=== PATIENT | male | born 1945 | race African-American/Black ===

== ENCOUNTER 2017-08-10 14:13 | Inpatient (IN) ==
[2017-08-10] MEDS ORDERED: ACETAMINOPHEN 325 MG/10.15 ML UDCUP PO STA (15:21)
[2017-08-10] MEDS ORDERED: VANCOMYCIN INJ 1,000 MG in SODIUM CHLORIDE 0.9% 250 ML IV STA (15:21)
[2017-08-10] MEDS ORDERED: PIPERACILLIN/TAZOBACTAM 2,250 MG in SODIUM CHLORIDE 0.9% 100 ML IV STA (15:21)
[2017-08-10 15:30] LABS: Basophils % 0.2 % (0.0-0.8); Eosinophils % 0.2 % (0.00-10.9); Hematocrit 26.9 VOL% (42.0-52.0); Hemoglobin 7.7 GM/DL (14.0-18.0); Immature Granulocytes % 0.7 %; Immature Granulocytes Absolute 0.12 #; Lymphocytes # 1.6 10*3/uL (1.4-4.0); Lymphocytes % 9.5 % (21.2-54.2); Mean Corpuscular HGB Conc 28.6 GM/DL (32-36); Mean Corpuscular Hemoglobin 25 PG (27-34); Mean Corpuscular Volume 87.6 FL (87-102); Mean Platelet Volume 11.7 FL (9.6-12.0); Monocytes # 1.1 10*3/uL (0.11-0.8); Monocytes % 6.3 % (1.7-12.7); Neutrophils # 14.4 10*3/uL (1.4-7.4); Neutrophils % 83.1 % (38.7-73.9); Platelet Count 379 T/CUMM (130-400); Red Blood Count 3.07 MC/CUMM (3.8-5.5); Red Cell Distribution Width 17.1 % (9.3-17.3); White Blood Count 17.3 T/CUMM (4-12)
[2017-08-10] MEDS ORDERED: PIPERACILLIN/TAZOBACTAM 3,375 MG in SODIUM CHLORIDE 0.9% 100 ML IV STA (15:41)
[2017-08-10 15:42] LABS: PT Patient Result 20.6 SECS
[2017-08-10 15:49] LABS: Lactic Acid 3.4 MMOL/L (0.4-2.0)
[2017-08-10] MEDS ORDERED: ONDANSETRON 4 MG/2 ML VIAL IV PRN (15:52)
[2017-08-10] MEDS ORDERED: LACTULOSE 20 GM/30 ML UDCUP PO PRN (15:52)
[2017-08-10] MEDS ORDERED: SODIUM CHLORIDE 0.9% 1,750 ML IV ONE (15:59)
[2017-08-10 16:00] LABS: Albumin 1.9 G/DL (3.4-5.0); Bilirubin,Total 0.7 MG/DL (0.2-1.0); Calcium 8.8 MG/DL (8.5-10.1); Potassium 4.6 MMOL/L (3.5-5.1); Total Protein 6.6 G/DL (6.4-8.3)
[2017-08-10] MEDS ORDERED: GLUCAGON 1 MG VIAL IM PRN (16:01)
[2017-08-10] MEDS ORDERED: DEXTROSE 50% 25 GM/50 ML VIAL IV PRN (16:01)
[2017-08-10] MEDS ORDERED: VANCOMYCIN 1,000 MG VIAL ONE (16:08)
[2017-08-10] MEDS ORDERED: ACETAMINOPHEN 325 MG/10.15 ML UDCUP ONE (16:13)
[2017-08-10] MEDS ORDERED: PIPERACILLIN/TAZOBACTAM 3,375 MG VIAL IV ONE (17:52)
[2017-08-10] MEDS: INSULIN LISPRO 100 UNIT/ML SUBCUT SCH ×2 (19:23→21:21)
[2017-08-10] MEDS: PANTOPRAZOLE 40 MG VIAL IV SCH (19:38)
[2017-08-10 19:44] LABS: Apearance,Urine CLOUDY (Clear); Bilirubin,Urine Negative (Negative); Blood, Urine Small mg/dL (Negative); Glucose,Urine (UA) 50 mg/dL (Negative); Ketones,Urine Negative (Negative); Nitrite,Urine Negative (Negative); Protein,Urine 100 MG/DL; Urine Color Amber (Yellow); Urine Specific Gravity 1.012 (1.001-1.035); WBC,Urine 1205 /HPF (0-6)
[2017-08-10] MEDS ORDERED: PHYTONADIONE 10 MG/1 ML AMP SUBCUT ONE (20:00)
[2017-08-10] MEDS: ISOSORBIDE DINITRATE 10 MG TABLET PEG SCH (20:11)
[2017-08-10] MEDS ORDERED: DIGOXIN 0.5 MG/2 ML AMP IV ONE (20:29)
[2017-08-10] MEDS: SODIUM CHLORIDE 0.45% 1,000 ML IV SCH (20:35)
[2017-08-10] MEDS: CARVEDILOL 25 MG TABLET PEG SCH (21:17)
[2017-08-11] MEDS: PIPERACILLIN/TAZOBACTAM 3,375 MG in SODIUM CHLORIDE 0.9% 100 ML IV SCH ×3 (02:35→18:08)
[2017-08-11] MEDS: MORPHINE 2 MG/1 ML SYRINGE IV PRN (02:36)
[2017-08-11] MEDS ORDERED: ACETAMINOPHEN 325 MG TABLET PO PRN (03:30)
[2017-08-11] MEDS ORDERED: ACETAMINOPHEN 650 MG SUPP RECTAL PRN (03:30)
[2017-08-11] MEDS: VANCOMYCIN INJ 1,000 MG in SODIUM CHLORIDE 0.9% 250 ML IV SCH ×2 (04:05→16:01)
[2017-08-11 05:13] LABS: Basophils % 0.2 % (0.0-0.8); Eosinophils # 0.1 10*3/uL (0.0-0.87); Eosinophils % 0.6 % (0.00-10.9); Hematocrit 25.2 VOL% (42.0-52.0); Hemoglobin 7.4 GM/DL (14.0-18.0); Immature Granulocytes % 0.7 %; Immature Granulocytes Absolute 0.11 #; Lymphocytes # 1.4 10*3/uL (1.4-4.0); Lymphocytes % 8.7 % (21.2-54.2); Mean Corpuscular HGB Conc 29.4 GM/DL (32-36); Mean Corpuscular Hemoglobin 25 PG (27-34); Mean Corpuscular Volume 85.7 FL (87-102); Mean Platelet Volume 12.2 FL (9.6-12.0); Monocytes % 6.3 % (1.7-12.7); Neutrophils # 13.6 10*3/uL (1.4-7.4); Neutrophils % 83.5 % (38.7-73.9); Platelet Count 340 T/CUMM (130-400); Red Blood Count 2.94 MC/CUMM (3.8-5.5); Red Cell Distribution Width 16.9 % (9.3-17.3); White Blood Count 16.3 T/CUMM (4-12)
[2017-08-11 05:17] LABS: INR 2.1
[2017-08-11 05:20] LABS: PT Patient Result 21.4 SECS
[2017-08-11 05:26] LABS: Albumin 1.7 G/DL (3.4-5.0); Bilirubin,Total 1.3 MG/DL (0.2-1.0); Calcium 8.4 MG/DL (8.5-10.1); Osmolality,Calculated 327.6 MOS/KG (273-304); Potassium 5.1 MMOL/L (3.5-5.1); Risk Ratio 2.29; Total Protein 6.1 G/DL (6.4-8.3)
[2017-08-11] MEDS: SODIUM CHLORIDE 0.45% 1,000 ML IV SCH (06:17)
[2017-08-11 06:28] LABS: Hypochromasia 1+; Lymphocytes 8 % (20-55); Platelet Estimate Adequate; Segmented Neutrophils 83 % (50-85); Total Cells Counted 100
[2017-08-11 06:29] LABS: Giant Platelets Few; Ovalocytes Slight
[2017-08-11] MEDS ORDERED: SODIUM CHLORIDE 0.9% 1,000 ML IV PRN (06:51)
[2017-08-11] MEDS: INSULIN LISPRO 100 UNIT/ML SUBCUT SCH ×3 (07:28→18:07)
[2017-08-11] MEDS ORDERED: DEXTROSE 5% 1,000 ML IV SCH (08:30)
[2017-08-11] MEDS: ISOSORBIDE DINITRATE 10 MG TABLET PEG SCH (09:13)
[2017-08-11] MEDS: CALCIUM (CARBONATE)/VITAMIN D 600 MG-400 UNIT TABLET PEG SCH (09:13)
[2017-08-11] MEDS: DOCUSATE SODIUM 100 MG CAPSULE PEG SCH (09:13)
[2017-08-11] MEDS: ATORVASTATIN 40 MG TABLET PEG SCH (09:14)
[2017-08-11] MEDS: FINASTERIDE 5 MG TABLET PO SCH (09:14)
[2017-08-11] MEDS: CARVEDILOL 25 MG TABLET PEG SCH ×2 (09:34→20:44)
[2017-08-11] MEDS: levETIRAcetam LIQUID 100 MG/ML 30 ML/BOTTLE PEG SCH (09:34)
[2017-08-11] MEDS ORDERED: PHYTONADIONE 10 MG/1 ML AMP SUBCUT ONE (10:28)
[2017-08-11 11:09] LABS: INR 1.6
[2017-08-11] MEDS ORDERED: SEVOFLURANE 1 UNIT/15 MINUTE INH ONE (14:13)
[2017-08-11] MEDS ORDERED: fentaNYL 100 MCG/2 ML VIAL ONE (14:14)
[2017-08-11] MEDS ORDERED: PHENYLEPHRINE 10 MG/1 ML VIAL IV ONE (14:15)
[2017-08-11] MEDS ORDERED: SODIUM CHLORIDE 0.9% 1,000 ML IV ONE (14:15)
[2017-08-11] MEDS ORDERED: MIDAZOLAM 10 MG/2 ML VIAL ONE (14:15)
[2017-08-11] MEDS ORDERED: ROCURONIUM 100 MG/10 ML VIAL IV ONE (14:15)
[2017-08-11] MEDS ORDERED: ETOMIDATE 40 MG/20 ML VIAL IV ONE (14:15)
[2017-08-11] MEDS ORDERED: SODIUM CHLORIDE 0.9% 250 ML IV ONE (14:15)
[2017-08-11] MEDS ORDERED: PHENYLEPHRINE DRIP 40 MG/250 ML PREMIX IV SCH (14:30)
[2017-08-11] MEDS ORDERED: DIGOXIN PEG SCH (15:00)
[2017-08-11] MEDS: CHLORHEXIDINE 4% SOLN 118 ML BOTTLE TOP SCH (15:00)
[2017-08-11] MEDS ORDERED: [UNRECOGNIZED DRUG - OTHER] PEG SCH (15:00)
[2017-08-11] MEDS ORDERED: DIGOXIN 0.125 MG TABLET PEG SCH (15:00)
[2017-08-11] MEDS: PROPOFOL 1,000 MG/100 ML BOTTLE IV SCH ×2 (15:02→22:52)
[2017-08-11 15:26] LABS: ABG Base Excess -0.2 MMOL/L (-2.5-2.5); ABG HCO3 24.3 MMOL/L (20-26); ABG Oxygen Saturation 99.2 % (95-100); ABG PCO2 45.4 MM HG (35-48); ABG TCO2 22.4 MMOL/L (23-27); Allen Test Positive; Pt O2 Delivery Device Ventilator
[2017-08-11] MEDS: PANTOPRAZOLE 40 MG VIAL IV SCH (15:54)
[2017-08-11] MEDS: ZINC OXIDE PASTE 113 GM TUBE TOP SCH (21:31)
[2017-08-12] MEDS: INSULIN LISPRO 100 UNIT/ML SUBCUT SCH ×4 (00:25→18:16)
[2017-08-12] MEDS: PIPERACILLIN/TAZOBACTAM 3,375 MG in SODIUM CHLORIDE 0.9% 100 ML IV SCH ×3 (01:53→18:09)
[2017-08-12] MEDS: MORPHINE 2 MG/1 ML SYRINGE IV PRN ×3 (01:53→17:11)
[2017-08-12 03:31] LABS: ABG Base Excess 0.9 MMOL/L (-2.5-2.5); ABG HCO3 24.3 MMOL/L (20-26); ABG Oxygen Saturation 98.5 % (95-100); ABG PCO2 33.9 MM HG (35-48); ABG PH 7.474 (7.35-7.45); ABG TCO2 25.4 MMOL/L (23-27)
[2017-08-12] MEDS: VANCOMYCIN INJ 1,000 MG in SODIUM CHLORIDE 0.9% 250 ML IV SCH ×3 (04:09→16:28)
[2017-08-12 07:07] LABS: Calcium 7.7 MG/DL (8.5-10.1); Osmolality,Calculated 313.4 MOS/KG (273-304); Potassium 5.3 MMOL/L (3.5-5.1)
[2017-08-12 07:24] LABS: Prealbumin 7.8 MG/DL (20-40)
[2017-08-12 07:49] LABS: Basophils % 0.2 % (0.0-0.8); Eosinophils # 0.6 10*3/uL (0.0-0.87); Eosinophils % 4.1 % (0.00-10.9); Hematocrit 26.1 VOL% (42.0-52.0); Immature Granulocytes % 0.8 %; Immature Granulocytes Absolute 0.11 #; Lymphocytes # 1.3 10*3/uL (1.4-4.0); Lymphocytes % 9.1 % (21.2-54.2); Mean Corpuscular HGB Conc 30.7 GM/DL (32-36); Mean Corpuscular Hemoglobin 26 PG (27-34); Mean Corpuscular Volume 85.9 FL (87-102); Monocytes # 0.9 10*3/uL (0.11-0.8); Monocytes % 6.3 % (1.7-12.7); Neutrophils # 11.3 10*3/uL (1.4-7.4); Neutrophils % 79.5 % (38.7-73.9); Platelet Count 301 T/CUMM (130-400); Red Blood Count 3.04 MC/CUMM (3.8-5.5); Red Cell Distribution Width 16.6 % (9.3-17.3); White Blood Count 14.2 T/CUMM (4-12)
[2017-08-12 08:01] LABS: INR 1.4
[2017-08-12 08:26] LABS: Band Neutrophils 2 % (0-10); Eosinophils 5 % (0-10); Giant Platelets Few; Hypochromasia 1+; Lymphocytes 3 % (20-55); Platelet Estimate Adequate; Segmented Neutrophils 86 % (50-85); Total Cells Counted 100
[2017-08-12] MEDS: DOCUSATE SODIUM 100 MG CAPSULE PEG SCH (10:08)
[2017-08-12] MEDS: FINASTERIDE 5 MG TABLET PO SCH (10:09)
[2017-08-12] MEDS: CALCIUM (CARBONATE)/VITAMIN D 600 MG-400 UNIT TABLET PEG SCH (10:09)
[2017-08-12] MEDS: CARVEDILOL 25 MG TABLET PEG SCH ×2 (10:09→22:43)
[2017-08-12] MEDS: ATORVASTATIN 40 MG TABLET PEG SCH (10:09)
[2017-08-12] MEDS: levETIRAcetam LIQUID 100 MG/ML 30 ML/BOTTLE PEG SCH (10:31)
[2017-08-12] MEDS ORDERED: TUBERCULIN SKIN TEST 0.1 ML SYRINGE INTRADERM ONE (11:00)
[2017-08-12] MEDS: ZINC OXIDE PASTE 113 GM TUBE TOP SCH ×2 (11:16→21:00)
[2017-08-12] MEDS ORDERED: [UNRECOGNIZED DRUG - OTHER] PEG SCH (13:00)
[2017-08-12] MEDS ORDERED: DIGOXIN PEG SCH (13:00)
[2017-08-12] MEDS: FLUCONAZOLE INJ 100 MG in IV BAG 1 EACH IV SCH (15:41)
[2017-08-12] MEDS: CHLORHEXIDINE 4% SOLN 118 ML BOTTLE TOP SCH (15:41)
[2017-08-12] MEDS: PANTOPRAZOLE 40 MG VIAL IV SCH (15:42)
[2017-08-12] MEDS ORDERED: DIGOXIN 0.25 MG TABLET PEG SCH (16:35)
[2017-08-12] MEDS ORDERED: DIGOXIN 0.25 MG TABLET PEG ONE (17:00)
[2017-08-13 06:38] LABS: INR 1.2; PT Patient Result 12.3 SECS
[2017-08-13] MEDS: PIPERACILLIN/TAZOBACTAM 3,375 MG in SODIUM CHLORIDE 0.9% 100 ML IV SCH ×4 (06:44→23:01)
[2017-08-13] MEDS: INSULIN LISPRO 100 UNIT/ML SUBCUT SCH ×4 (07:25→17:05)
[2017-08-13] MEDS: CALCIUM (CARBONATE)/VITAMIN D 600 MG-400 UNIT TABLET PEG SCH (10:58)
[2017-08-13] MEDS: ATORVASTATIN 40 MG TABLET PEG SCH (10:59)
[2017-08-13] MEDS: CHLORHEXIDINE 4% SOLN 118 ML BOTTLE TOP SCH (10:59)
[2017-08-13] MEDS: CARVEDILOL 25 MG TABLET PEG SCH ×2 (10:59→22:13)
[2017-08-13] MEDS: ZINC OXIDE PASTE 113 GM TUBE TOP SCH ×2 (10:59→22:13)
[2017-08-13] MEDS: DOCUSATE SODIUM 100 MG CAPSULE PEG SCH (10:59)
[2017-08-13] MEDS: levETIRAcetam LIQUID 100 MG/ML 30 ML/BOTTLE PEG SCH (10:59)
[2017-08-13] MEDS: FINASTERIDE 5 MG TABLET PO SCH (11:00)
[2017-08-13] MEDS: VANCOMYCIN INJ 1,000 MG in SODIUM CHLORIDE 0.9% 250 ML IV SCH (11:00)
[2017-08-13] MEDS ORDERED: DIGOXIN 0.25 MG TABLET PEG SCH (13:00)
[2017-08-13] MEDS: ALBUTEROL 2.5 MG/3 ML NEB RESP TX PRN (13:57)
[2017-08-13] MEDS: DIGOXIN 0.125 MG TABLET PEG SCH (14:01)
[2017-08-13] MEDS: PANTOPRAZOLE 40 MG VIAL IV SCH (16:36)
[2017-08-13] MEDS: FLUCONAZOLE INJ 100 MG in IV BAG 1 EACH IV SCH (16:36)
[2017-08-14] MEDS: INSULIN LISPRO 100 UNIT/ML SUBCUT SCH ×4 (01:45→19:10)
[2017-08-14] MEDS: VANCOMYCIN INJ 1,000 MG in SODIUM CHLORIDE 0.9% 250 ML IV SCH (04:51)
[2017-08-14 05:19] LABS: Basophils % 0.2 % (0.0-0.8); Eosinophils # 0.6 10*3/uL (0.0-0.87); Hematocrit 24.7 VOL% (42.0-52.0); Hemoglobin 7.2 GM/DL (14.0-18.0); Immature Granulocytes % 0.7 %; Immature Granulocytes Absolute 0.08 #; Lymphocytes # 1.1 10*3/uL (1.4-4.0); Lymphocytes % 9.6 % (21.2-54.2); Mean Corpuscular HGB Conc 29.1 GM/DL (32-36); Mean Corpuscular Hemoglobin 26 PG (27-34); Mean Corpuscular Volume 87.9 FL (87-102); Mean Platelet Volume 12.1 FL (9.6-12.0); Monocytes # 0.6 10*3/uL (0.11-0.8); Monocytes % 5.9 % (1.7-12.7); Neutrophils # 8.6 10*3/uL (1.4-7.4); Neutrophils % 78.6 % (38.7-73.9); Platelet Count 302 T/CUMM (130-400); Red Blood Count 2.81 MC/CUMM (3.8-5.5); Red Cell Distribution Width 16.8 % (9.3-17.3); White Blood Count 10.9 T/CUMM (4-12)
[2017-08-14 05:32] LABS: INR 1.1; PT Patient Result 11.7 SECS
[2017-08-14 05:44] LABS: Calcium 7.5 MG/DL (8.5-10.1); Osmolality,Calculated 307.4 MOS/KG (273-304)
[2017-08-14] MEDS: ALBUTEROL 2.5 MG/3 ML NEB RESP TX PRN ×2 (05:58→18:07)
[2017-08-14 06:13] LABS: Hypochromasia 2+; Microcytosis 2+
[2017-08-14] MEDS: PIPERACILLIN/TAZOBACTAM 3,375 MG in SODIUM CHLORIDE 0.9% 100 ML IV SCH ×2 (09:20→16:00)
[2017-08-14] MEDS ORDERED: SODIUM CHLORIDE 0.9% 1,000 ML IV PRN (10:13)
[2017-08-14] MEDS: ATORVASTATIN 40 MG TABLET PEG SCH (10:27)
[2017-08-14] MEDS: CARVEDILOL 25 MG TABLET PEG SCH ×2 (10:27→20:59)
[2017-08-14] MEDS: DOCUSATE SODIUM 100 MG CAPSULE PEG SCH (10:27)
[2017-08-14] MEDS: FINASTERIDE 5 MG TABLET PO SCH (10:27)
[2017-08-14] MEDS: CALCIUM (CARBONATE)/VITAMIN D 600 MG-400 UNIT TABLET PEG SCH (10:27)
[2017-08-14] MEDS: ZINC OXIDE PASTE 113 GM TUBE TOP SCH ×2 (10:30→20:59)
[2017-08-14] MEDS: levETIRAcetam LIQUID 100 MG/ML 30 ML/BOTTLE PEG SCH (10:30)
[2017-08-14] MEDS: CHLORHEXIDINE 4% SOLN 118 ML BOTTLE TOP SCH (10:30)
[2017-08-14 10:53] LABS: Hepatitis A Ab IgM Result Negative (Negative); Hepatitis B Surface Ag Result Negative (Negative)
[2017-08-14 10:54] LABS: Hepatitis B Core IgM Quant 0.17 Index; Hepatitis B Core IgM Result Negative (Negative); Hepatitis C Virus Ab Quant 0.13 Index; Hepatitis C Virus Ab Result Negative (Negative)
[2017-08-14] MEDS ORDERED: methylPREDNISolone 4 MG TABLET PO SCH (15:00)
[2017-08-14] MEDS: PANTOPRAZOLE 40 MG VIAL IV SCH (16:04)
[2017-08-14] MEDS: methylPREDNISolone 4 MG TABLET PO SCH ×2 (17:37→20:58)
[2017-08-14] MEDS: DIGOXIN 0.25 MG TABLET PEG SCH (17:38)
[2017-08-14] MEDS: FLUCONAZOLE INJ 100 MG in IV BAG 1 EACH IV SCH (17:38)
[2017-08-14] MEDS ORDERED: VANCOMYCIN INJ 1,000 MG in SODIUM CHLORIDE 0.9% 250 ML IV SCH (18:00)
[2017-08-14] MEDS: MEROPENEM 500 MG in SODIUM CHLORIDE 0.9% 100 ML IV SCH (19:26)
[2017-08-14] MEDS: SODIUM CHLORIDE 23.4% CONC INJ 38.5 MEQ in STERILE WATER INJ 1,000 ML IV SCH (19:26)
[2017-08-14] MEDS: LACTOBACILLUS RHAMNOSUS GG CAPSULE PO SCH (20:59)
[2017-08-14] MEDS: VANCOMYCIN INJ 750 MG in SODIUM CHLORIDE 0.9% 250 ML IV SCH (21:30)
[2017-08-14 23:26] LABS: Hematocrit 29.8 VOL% (42.0-52.0); Hemoglobin 8.9 GM/DL (14.0-18.0)
[2017-08-15] MEDS: INSULIN LISPRO 100 UNIT/ML SUBCUT SCH ×4 (00:28→19:31)
[2017-08-15 04:48] LABS: Basophils % 0.2 % (0.0-0.8); Hematocrit 29.9 VOL% (42.0-52.0); Hemoglobin 8.9 GM/DL (14.0-18.0); INR 1.1; Immature Granulocytes % 0.9 %; Immature Granulocytes Absolute 0.09 #; Lymphocytes # 0.7 10*3/uL (1.4-4.0); Lymphocytes % 6.5 % (21.2-54.2); Mean Corpuscular HGB Conc 29.8 GM/DL (32-36); Mean Corpuscular Hemoglobin 26 PG (27-34); Mean Corpuscular Volume 87.2 FL (87-102); Mean Platelet Volume 12.1 FL (9.6-12.0); Monocytes # 0.1 10*3/uL (0.11-0.8); Monocytes % 0.9 % (1.7-12.7); Neutrophils # 9.6 10*3/uL (1.4-7.4); Neutrophils % 91.5 % (38.7-73.9); PT Patient Result 11.2 SECS; Platelet Count 362 T/CUMM (130-400); Red Blood Count 3.43 MC/CUMM (3.8-5.5); Red Cell Distribution Width 16.3 % (9.3-17.3); White Blood Count 10.5 T/CUMM (4-12)
[2017-08-15] MEDS: ALBUTEROL 2.5 MG/3 ML NEB RESP TX PRN (05:15)
[2017-08-15 05:17] LABS: Calcium 8.3 MG/DL (8.5-10.1); Potassium 5.7 MMOL/L (3.5-5.1)
[2017-08-15] MEDS: ZINC OXIDE PASTE 113 GM TUBE TOP SCH ×3 (06:05→21:27)
[2017-08-15 06:41] LABS: Band Neutrophils 2 % (0-10); Lymphocytes 9 % (20-55); Platelet Estimate Normal; Segmented Neutrophils 89 % (50-85); Total Cells Counted 100
[2017-08-15] MEDS: MEROPENEM 500 MG in SODIUM CHLORIDE 0.9% 100 ML IV SCH ×2 (09:29→21:10)
[2017-08-15] MEDS: CALCIUM (CARBONATE)/VITAMIN D 600 MG-400 UNIT TABLET PEG SCH (09:30)
[2017-08-15] MEDS: CARVEDILOL 25 MG TABLET PEG SCH ×2 (09:30→21:27)
[2017-08-15] MEDS: LACTOBACILLUS RHAMNOSUS GG CAPSULE PO SCH ×2 (09:30→21:27)
[2017-08-15] MEDS: ATORVASTATIN 40 MG TABLET PEG SCH (09:30)
[2017-08-15] MEDS: methylPREDNISolone 4 MG TABLET PO SCH ×4 (09:30→21:15)
[2017-08-15] MEDS: levETIRAcetam LIQUID 100 MG/ML 30 ML/BOTTLE PEG SCH (09:31)
[2017-08-15] MEDS: DOCUSATE SODIUM 100 MG CAPSULE PEG SCH (09:31)
[2017-08-15] MEDS: VANCOMYCIN INJ 750 MG in SODIUM CHLORIDE 0.9% 250 ML IV SCH ×2 (09:39→21:50)
[2017-08-15] MEDS: FINASTERIDE 5 MG TABLET PO SCH (09:39)
[2017-08-15] MEDS: CHLORHEXIDINE 4% SOLN 118 ML BOTTLE TOP SCH (10:38)
[2017-08-15] MEDS: LOPERAMIDE 0.2 MG/ML 30 ML/BOTTLE PEG PRN (14:15)
[2017-08-15] MEDS: DIGOXIN 0.125 MG TABLET PEG SCH (14:16)
[2017-08-15] MEDS: FLUCONAZOLE INJ 100 MG in IV BAG 1 EACH IV SCH (14:17)
[2017-08-15] MEDS: PANTOPRAZOLE 40 MG VIAL IV SCH (16:38)
[2017-08-15 16:54] LABS: Troponin I Only 0.015 NG/ML (0.00-0.045)
[2017-08-15] MEDS: NITROGLYCERIN 2% OINT 1 INCH/GM PACK TOP SCH (18:19)
[2017-08-15 19:56] LABS: Troponin I Only < 0.015 NG/ML (0.00-0.045)
[2017-08-15] MEDS: SODIUM CHLORIDE 23.4% CONC INJ 38.5 MEQ in STERILE WATER INJ 1,000 ML IV SCH ×2 (19:58→22:02)
[2017-08-15] MEDS ORDERED: AMIODARONE INJ 150 MG in DEXTROSE 5% 100 ML IV ONE (22:22)
[2017-08-15 22:41] LABS: Blood Urea Nitrogen 40 MG/DL (7-18); Calcium 8.1 MG/DL (8.5-10.1); Glucose 148 MG/DL (74-106); Osmolality,Calculated 295.1 MOS/KG (273-304); Potassium 4.8 MMOL/L (3.5-5.1); Sodium 142 MMOL/L (136-145); Troponin I Only < 0.015 NG/ML (0.00-0.045)
[2017-08-15] MEDS ORDERED: AMIODARONE INJ 450 MG in DEXTROSE 5% 241 ML IV SCH (23:30)
[2017-08-16] MEDS: INSULIN LISPRO 100 UNIT/ML SUBCUT SCH ×4 (00:20→18:00)
[2017-08-16] MEDS: NITROGLYCERIN 2% OINT 1 INCH/GM PACK TOP SCH ×2 (00:32→06:15)
[2017-08-16 02:12] LABS: Troponin I Only 0.019 NG/ML (0.00-0.045)
[2017-08-16 05:16] LABS: Basophils % 0.1 % (0.0-0.8); Hematocrit 27.7 VOL% (42.0-52.0); Hemoglobin 8.4 GM/DL (14.0-18.0); Immature Granulocytes % 0.9 %; Immature Granulocytes Absolute 0.11 #; Lymphocytes # 0.9 10*3/uL (1.4-4.0); Lymphocytes % 7.1 % (21.2-54.2); Mean Corpuscular HGB Conc 30.3 GM/DL (32-36); Mean Corpuscular Hemoglobin 26 PG (27-34); Mean Corpuscular Volume 85.8 FL (87-102); Mean Platelet Volume 11.8 FL (9.6-12.0); Monocytes # 0.4 10*3/uL (0.11-0.8); Monocytes % 2.9 % (1.7-12.7); NRBC # 0.03 10*3/uL; Neutrophils # 11.2 10*3/uL (1.4-7.4); Platelet Count 394 T/CUMM (130-400); Red Blood Count 3.23 MC/CUMM (3.8-5.5); White Blood Count 12.6 T/CUMM (4-12)
[2017-08-16 05:49] LABS: Eosinophils 1 % (0-10); Lymphocytes 8 % (20-55); Platelet Estimate Adequate; Segmented Neutrophils 84 % (50-85); Total Cells Counted 100
[2017-08-16 05:50] LABS: Giant Platelets Few; Hypochromasia 1+; Microcytosis Slight; Ovalocytes Slight
[2017-08-16 05:53] LABS: Troponin I Only < 0.015 NG/ML (0.00-0.045)
[2017-08-16 05:54] LABS: Prealbumin 10.4 MG/DL (20-40)
[2017-08-16] MEDS: SODIUM CHLORIDE 23.4% CONC INJ 38.5 MEQ in STERILE WATER INJ 1,000 ML IV SCH ×2 (06:00→22:29)
[2017-08-16 06:03] LABS: Calcium 8.3 MG/DL (8.5-10.1); Osmolality,Calculated 290.5 MOS/KG (273-304); Potassium 5.2 MMOL/L (3.5-5.1)
[2017-08-16 06:15] LABS: PT Patient Result 10.8 SECS
[2017-08-16] MEDS: LACTOBACILLUS RHAMNOSUS GG CAPSULE PO SCH ×2 (09:05→21:01)
[2017-08-16] MEDS: CALCIUM (CARBONATE)/VITAMIN D 600 MG-400 UNIT TABLET PEG SCH (09:05)
[2017-08-16] MEDS: FINASTERIDE 5 MG TABLET PO SCH (09:05)
[2017-08-16] MEDS: CARVEDILOL 25 MG TABLET PEG SCH ×2 (09:05→21:02)
[2017-08-16] MEDS: methylPREDNISolone 4 MG TABLET PO SCH ×4 (09:05→21:01)
[2017-08-16] MEDS: MEROPENEM 500 MG in SODIUM CHLORIDE 0.9% 100 ML IV SCH ×2 (09:05→21:02)
[2017-08-16] MEDS: CHLORHEXIDINE 4% SOLN 118 ML BOTTLE TOP SCH (09:06)
[2017-08-16] MEDS: levETIRAcetam LIQUID 100 MG/ML 30 ML/BOTTLE PEG SCH (09:06)
[2017-08-16] MEDS: DOCUSATE SODIUM 100 MG CAPSULE PEG SCH (09:06)
[2017-08-16] MEDS: ZINC OXIDE PASTE 113 GM TUBE TOP SCH ×2 (09:06→21:10)
[2017-08-16] MEDS: VANCOMYCIN INJ 750 MG in SODIUM CHLORIDE 0.9% 250 ML IV SCH (09:07)
[2017-08-16] MEDS: ATORVASTATIN 40 MG TABLET PEG SCH ×2 (09:11→21:01)
[2017-08-16] MEDS ORDERED: ASPIRIN EC 81 MG TABLET PO SCH (10:30)
[2017-08-16] MEDS ORDERED: hydrALAZINE 25 MG TABLET PO SCH (10:33)
[2017-08-16] MEDS ORDERED: ISOSORBIDE DINITRATE 10 MG TABLET PO SCH (10:33)
[2017-08-16] MEDS: VANCOMYCIN 50 MG/ML 60 ML/BOTTLE PO SCH ×3 (11:55→23:00)
[2017-08-16] MEDS: ISOSORBIDE MONONITRATE 30 MG TABLET PO SCH (11:56)
[2017-08-16] MEDS: DIGOXIN 0.25 MG TABLET PEG SCH (12:00)
[2017-08-16 12:44] LABS: Apearance,Urine Slightly Hazy (Clear); Bilirubin,Urine Negative (Negative); Blood, Urine Small mg/dL (Negative); Glucose,Urine (UA) Negative (Negative); Ketones,Urine Negative (Negative); Mucus,Urine Occasional /LPF (Occasional); Nitrite,Urine Negative (Negative); Protein,Urine Negative; RBC,Urine 6 /HPF (0-4); Urine Color Yellow (Yellow); Urine Specific Gravity 1.004 (1.001-1.035); Urine Urobilinogen < 2.0 EU/DL (0.2-1.0); WBC,Urine 116 /HPF (0-6)
[2017-08-16] MEDS: ISOSORBIDE DINITRATE 10 MG TABLET PEG SCH ×2 (15:24→22:29)
[2017-08-16] MEDS: PANTOPRAZOLE 40 MG VIAL IV SCH (15:24)
[2017-08-16] MEDS: hydrALAZINE 25 MG TABLET PEG SCH ×2 (15:24→21:01)
[2017-08-16] MEDS: FLUCONAZOLE INJ 100 MG in IV BAG 1 EACH IV SCH (15:37)
[2017-08-17] MEDS: INSULIN LISPRO 100 UNIT/ML SUBCUT SCH ×4 (00:24→19:10)
[2017-08-17] MEDS ORDERED: VANCOMYCIN INJ 750 MG in SODIUM CHLORIDE 0.9% 250 ML IV SCH (03:00)
[2017-08-17] MEDS: SODIUM CHLORIDE 23.4% CONC INJ 38.5 MEQ in STERILE WATER INJ 1,000 ML IV SCH ×2 (05:05→13:30)
[2017-08-17 05:09] LABS: Basophils % 0.1 % (0.0-0.8); Eosinophils % 0.1 % (0.00-10.9); Hematocrit 27.7 VOL% (42.0-52.0); Hemoglobin 8.8 GM/DL (14.0-18.0); Immature Granulocytes % 1.3 %; Immature Granulocytes Absolute 0.19 #; Lymphocytes # 1.2 10*3/uL (1.4-4.0); Lymphocytes % 8.3 % (21.2-54.2); Mean Corpuscular HGB Conc 31.8 GM/DL (32-36); Mean Corpuscular Hemoglobin 27 PG (27-34); Mean Corpuscular Volume 83.9 FL (87-102); Mean Platelet Volume 11.7 FL (9.6-12.0); Monocytes # 0.5 10*3/uL (0.11-0.8); Monocytes % 3.6 % (1.7-12.7); NRBC # 0.03 10*3/uL; Neutrophils # 12.6 10*3/uL (1.4-7.4); Neutrophils % 86.6 % (38.7-73.9); Platelet Count 433 T/CUMM (130-400); Red Cell Distribution Width 16.3 % (9.3-17.3); White Blood Count 14.6 T/CUMM (4-12)
[2017-08-17 05:36] LABS: Calcium 8.2 MG/DL (8.5-10.1); Osmolality,Calculated 294.1 MOS/KG (273-304); Potassium 5.2 MMOL/L (3.5-5.1)
[2017-08-17 05:37] LABS: Band Neutrophils 1 % (0-10); Burr Cells Slight; Giant Platelets Few; Hypochromasia 1+; Lymphocytes 3 % (20-55); Microcytosis Slight; Ovalocytes Slight; Platelet Estimate Increased; Segmented Neutrophils 91 % (50-85); Total Cells Counted 100
[2017-08-17] MEDS: ALBUTEROL 2.5 MG/3 ML NEB RESP TX PRN ×3 (06:18→19:56)
[2017-08-17] MEDS: VANCOMYCIN 50 MG/ML 60 ML/BOTTLE PO SCH ×3 (07:27→19:09)
[2017-08-17] MEDS: CHLORHEXIDINE 4% SOLN 118 ML BOTTLE TOP SCH (08:10)
[2017-08-17] MEDS: MEROPENEM 500 MG in SODIUM CHLORIDE 0.9% 100 ML IV SCH ×2 (08:34→20:25)
[2017-08-17] MEDS: methylPREDNISolone 4 MG TABLET PO SCH ×3 (08:37→21:39)
[2017-08-17] MEDS: LACTOBACILLUS RHAMNOSUS GG CAPSULE PO SCH ×2 (08:38→21:40)
[2017-08-17] MEDS: hydrALAZINE 25 MG TABLET PEG SCH (08:38)
[2017-08-17] MEDS: CALCIUM (CARBONATE)/VITAMIN D 600 MG-400 UNIT TABLET PEG SCH (08:38)
[2017-08-17] MEDS: CARVEDILOL 25 MG TABLET PEG SCH ×2 (08:38→21:40)
[2017-08-17] MEDS: FINASTERIDE 5 MG TABLET PO SCH (08:39)
[2017-08-17] MEDS: ISOSORBIDE MONONITRATE 30 MG TABLET PO SCH (08:39)
[2017-08-17] MEDS: levETIRAcetam LIQUID 100 MG/ML 30 ML/BOTTLE PEG SCH (08:40)
[2017-08-17] MEDS: ISOSORBIDE DINITRATE 10 MG TABLET PEG SCH ×3 (09:05→21:40)
[2017-08-17] MEDS: DOCUSATE SODIUM 100 MG CAPSULE PEG SCH (09:06)
[2017-08-17] MEDS ORDERED: hydrALAZINE 25 MG TABLET PO ONE (10:10)
[2017-08-17] MEDS ORDERED: hydrALAZINE 25 MG TABLET PEG ONE (10:10)
[2017-08-17] MEDS: ASPIRIN 300 MG SUPP RECTAL SCH (11:12)
[2017-08-17] MEDS: ENOXAPARIN 80 MG/0.8 ML SYRINGE SUBCUT SCH ×2 (11:12→22:45)
[2017-08-17] MEDS: DIGOXIN 0.125 MG TABLET PEG SCH (13:00)
[2017-08-17] MEDS: ZINC OXIDE PASTE 113 GM TUBE TOP SCH ×2 (13:08→21:46)
[2017-08-17] MEDS: FLUCONAZOLE INJ 100 MG in IV BAG 1 EACH IV SCH (15:45)
[2017-08-17] MEDS: PANTOPRAZOLE 40 MG VIAL IV SCH (19:09)
[2017-08-17] MEDS: ATORVASTATIN 40 MG TABLET PEG SCH (21:40)
[2017-08-18] MEDS: VANCOMYCIN 50 MG/ML 60 ML/BOTTLE PO SCH ×4 (00:20→18:29)
[2017-08-18] MEDS: INSULIN LISPRO 100 UNIT/ML SUBCUT SCH ×4 (00:33→18:29)
[2017-08-18] MEDS: SODIUM CHLORIDE 23.4% CONC INJ 38.5 MEQ in STERILE WATER INJ 1,000 ML IV SCH (04:40)
[2017-08-18 06:33] LABS: Basophils % 0.1 % (0.0-0.8); Eosinophils # 0.1 10*3/uL (0.0-0.87); Eosinophils % 0.7 % (0.00-10.9); Hematocrit 29.8 VOL% (42.0-52.0); Immature Granulocytes % 1.7 %; Immature Granulocytes Absolute 0.25 #; Lymphocytes % 13.3 % (21.2-54.2); Mean Corpuscular HGB Conc 30.2 GM/DL (32-36); Mean Corpuscular Hemoglobin 26 PG (27-34); Mean Corpuscular Volume 85.1 FL (87-102); Mean Platelet Volume 11.5 FL (9.6-12.0); Monocytes # 0.8 10*3/uL (0.11-0.8); Monocytes % 5.4 % (1.7-12.7); NRBC # 0.02 10*3/uL; Neutrophils # 11.6 10*3/uL (1.4-7.4); Neutrophils % 78.8 % (38.7-73.9); Platelet Count 463 T/CUMM (130-400); White Blood Count 14.7 T/CUMM (4-12)
[2017-08-18 06:58] LABS: Band Neutrophils 1 % (0-10); Lymphocytes 11 % (20-55); Platelet Estimate Adequate; Segmented Neutrophils 81 % (50-85); Total Cells Counted 100
[2017-08-18 06:59] LABS: Elliptocytes Few; Giant Platelets Few; Hypochromasia 1+; Microcytosis Slight
[2017-08-18 07:02] LABS: Calcium 8.2 MG/DL (8.5-10.1); Potassium 5.1 MMOL/L (3.5-5.1)
[2017-08-18 07:23] LABS: Osmolality,Calculated 290.1 MOS/KG (273-304)
[2017-08-18] MEDS: CARVEDILOL 25 MG TABLET PEG SCH ×2 (09:55→21:40)
[2017-08-18] MEDS: ZINC OXIDE PASTE 113 GM TUBE TOP SCH ×2 (09:55→21:48)
[2017-08-18] MEDS: ISOSORBIDE DINITRATE 10 MG TABLET PEG SCH ×3 (09:55→21:40)
[2017-08-18] MEDS: levETIRAcetam LIQUID 100 MG/ML 30 ML/BOTTLE PEG SCH (09:55)
[2017-08-18] MEDS: CALCIUM (CARBONATE)/VITAMIN D 600 MG-400 UNIT TABLET PEG SCH (09:55)
[2017-08-18] MEDS: DOCUSATE SODIUM 100 MG CAPSULE PEG SCH (09:55)
[2017-08-18] MEDS: LACTOBACILLUS RHAMNOSUS GG CAPSULE PO SCH ×2 (09:55→21:40)
[2017-08-18] MEDS: methylPREDNISolone 4 MG TABLET PO SCH ×2 (09:55→21:40)
[2017-08-18] MEDS: FINASTERIDE 5 MG TABLET PO SCH (09:55)
[2017-08-18] MEDS ORDERED: cefTRIAXone 1,000 MG in SYRINGE 1 EACH IV SCH (10:00)
[2017-08-18] MEDS: MEROPENEM 500 MG in SODIUM CHLORIDE 0.9% 100 ML IV SCH (10:25)
[2017-08-18] MEDS: ASPIRIN 300 MG SUPP RECTAL SCH (10:25)
[2017-08-18] MEDS: DIGOXIN 0.25 MG TABLET PEG SCH (14:37)
[2017-08-18] MEDS: FLUCONAZOLE 100 MG TABLET PO SCH (14:37)
[2017-08-18] MEDS: CHLORHEXIDINE 4% SOLN 118 ML BOTTLE TOP SCH (14:45)
[2017-08-18] MEDS ORDERED: APIXABAN 5 MG TABLET PO SCH (21:00)
[2017-08-18] MEDS: ATORVASTATIN 40 MG TABLET PEG SCH (21:40)
[2017-08-19] MEDS: VANCOMYCIN 50 MG/ML 60 ML/BOTTLE PO SCH ×3 (00:08→14:32)
[2017-08-19] MEDS: INSULIN LISPRO 100 UNIT/ML SUBCUT SCH ×3 (00:14→14:32)
[2017-08-19 06:21] LABS: Calcium 8.5 MG/DL (8.5-10.1); Osmolality,Calculated 290.3 MOS/KG (273-304); Potassium 5.1 MMOL/L (3.5-5.1); Prealbumin 21.3 MG/DL (20-40)
[2017-08-19] MEDS: FINASTERIDE 5 MG TABLET PO SCH (08:31)
[2017-08-19] MEDS: CHLORHEXIDINE 4% SOLN 118 ML BOTTLE TOP SCH (08:31)
[2017-08-19] MEDS: DOCUSATE SODIUM 100 MG CAPSULE PEG SCH (08:31)
[2017-08-19] MEDS: ISOSORBIDE DINITRATE 10 MG TABLET PEG SCH (08:31)
[2017-08-19] MEDS: CALCIUM (CARBONATE)/VITAMIN D 600 MG-400 UNIT TABLET PEG SCH (08:31)
[2017-08-19] MEDS: FLUCONAZOLE 100 MG TABLET PO SCH (08:31)
[2017-08-19] MEDS: CARVEDILOL 25 MG TABLET PEG SCH (08:31)
[2017-08-19] MEDS: levETIRAcetam LIQUID 100 MG/ML 30 ML/BOTTLE PEG SCH (08:31)
[2017-08-19] MEDS: ZINC OXIDE PASTE 113 GM TUBE TOP SCH (08:31)
[2017-08-19] MEDS: LACTOBACILLUS RHAMNOSUS GG CAPSULE PO SCH (08:31)
[2017-08-19] MEDS: LOPERAMIDE 0.2 MG/ML 30 ML/BOTTLE PEG PRN (08:40)
[2017-08-19] MEDS ORDERED: FLUCONAZOLE 100 MG TABLET PO SCH (09:00)
[2017-08-19] MEDS ORDERED: ASPIRIN CHEW 81 MG TABLET PO SCH ×2 (09:00)
[2017-08-19] MEDS ORDERED: PANTOPRAZOLE 40 MG TABLET PO SCH (09:00)
[2017-08-19 10:58] VITALS: BP 124/77
[2017-08-19] MEDS: DIGOXIN 0.125 MG TABLET PEG SCH (14:33)
== END 2017-08-19 14:35 | DRG 853 ==
LOC: EDUNIT# → EDBD → N.ED 14:13 → SUATTDRO 15:52 → N.EDINP 15:52 → N.ICU 19:00 → N.3E 08-12 21:04 → N.CC 08-15 15:16 → N.3E 08-16 13:42
PROVIDERS: ADMIT Internal Medicine; ATTEND Internal Medicine